=== PATIENT | female | born 1995 | race Caucasian/White ===

== ENCOUNTER 2018-01-09 05:43 | Emergency (ER) | payer OTHER ==
[~2018-01-09 05:43] MED LIST: ETHI1TAB28 PO; ONDA4TAB97 PO; PROM-110 PO
--- NOTE | 2018-01-09 05:46 | ER Report ---
History and Physical Time Seen By MD: 05:45 HPI/ROS CHIEF COMPLAINT: Vomiting and diarrhea HISTORY OF PRESENT ILLNESS: 22-year-old female who began vomiting approximately 3-4 hours prior to arrival. Sudden multiple episodes of vomiting and diarrhea. Patient doesn't think she has food poisoning. She did eat a chicken quesadilla for lunch yesterday and a sandwich for dinner. Denies exposure to ill contacts or recent travel. She denies any other illness. She's not been on antibiotics recently. She denies risk of . REVIEW OF SYSTEMS: Respiratory: No cough, no dyspnea. Cardiovascular: No chest pain, no palpitations. Gastrointestinal: As above Musculoskeletal: No back pain. Allergies: Coded Allergies: No Known Drug Allergies (Unverified , 01/09/18) Home Meds Active Scripts Ondansetron (ZOFRAN ODT) 4 Mg Tab.rapdis, 4 MG PO every 6 hours Y for NAUSEA/ VOMITING, #15 TAB TAKE 1 TABLET BY MOUTH EVERY 12 HOURS Prov:RYNE BLACK DO 01/09/18 Reported Medications Ethinyl Estradiol/Drospirenone (VESTURA 3 MG-0.02 MG TABLET) 1 Each Tablet, 1 EACH PO QDAY 07/28/16 Discontinued Scripts Ondansetron Hcl (ZOFRAN) 4 Mg Tablet, 4 MG PO Q6H Y for NAUSEA/VOMITING, #10 Prov:RYNE BLACK DO 07/28/16 Promethazine Hcl (PROMETHAZINE HCL) 25 Mg Tablet, 25 MG PO Q4H Y for NAUSEA/ VOMITING, #14 TAB Prov:RYNE BLACK DO 07/28/16 Reviewed Nurses Notes: Yes Old Medical Records Reviewed: Yes Hx Substance Use Disorder: Yes (marijuana) Hx Alcohol Use: Yes Constitutional Physical Exam General Appearance: The patient is alert, has no immediate need for airway protection and no current signs of toxicity. Vital signs stable, afebrile, pulse ox normal HEENT: Pupils equal and round no injection. TMs normal, oropharynx with mild erythema, no exudate Respiratory: Chest is non tender, lungs are clear to auscultation. Cardiac: regular rate and rhythm Gastrointestinal: Abdomen is soft and non tender, no masses, bowel sounds hyperactive bowel sounds. Musculoskeletal: Neck: Neck is supple and non tender. Extremities have full range of motion and are non tender. Skin: No rashes or lesions. DIFFERENTIAL DIAGNOSIS: After history and physical exam differential diagnosis was considered for abdominal pain including but not limited to appendicitis, cholecystitis, gastritis, gastritis, food poisoning, viral syndrome, and urinary tract infection. Medical Decision Making Data Points Laboratory Hematology Test 01/09/18 06:05 Red Blood Count 5.92 M/uL (4.17-5.56) Mean Corpuscular Volume 86.8 fL (80.0-96.0) Mean Corpuscular Hemoglobin 29.8 pg (26.0-33.0) Mean Corpuscular Hemoglobin Concent 34.4 g/dL (32.0-36.0) Red Cell Distribution Width 13.6 % (11.5-14.5) Mean Platelet Volume 8.5 fL (7.2-11.1) Neutrophils (%) (Auto) 85.0 % (39.4-72.5) Lymphocytes (%) (Auto) 6.2 % (17.6-49.6) Monocytes (%) (Auto) 8.2 % (4.1-12.4) Eosinophils (%) (Auto) 0.4 % (0.4-6.7) Basophils (%) (Auto) 0.2 % (0.3-1.4) Nucleated RBC Relative Count (auto) 0.0 /100WBC Neutrophils # (Auto) 12.0 K/uL (2.0-7.4) Lymphocytes # (Auto) 0.9 K/uL (1.3-3.6) Monocytes # (Auto) 1.2 K/uL (0.3-1.0) Eosinophils # (Auto) 0.1 K/uL (0.0-0.5) Basophils # (Auto) 0.0 K/uL (0.0-0.1) Nucleated RBC Absolute Count (auto) 0.00 K/uL Sodium Level 137 mmol/L (137-145) Potassium Level 3.8 mmol/L (3.5-5.0) Chloride Level 103 mmol/L (98-107) Carbon Dioxide Level 19 mmol/L (22-31) Blood Urea Nitrogen 18 mg/dl (7-18) Creatinine 0.80 mg/dl (0.52-1.04) Glomerular Filtration Rate Calc > 60.0 Random Glucose 122 mg/dl (75-110) Calcium Level 10.1 mg/dl (8.4-10.2) Total Bilirubin 0.6 mg/dl (0.2-1.3) Aspartate Amino Transf (AST/SGOT) 28 U/L (0-35) Alanine Aminotransferase (ALT/SGPT) 23 U/L (0-56) Alkaline Phosphatase 97 U/L (0-126) Total Protein 8.5 gm/dl (6.3-8.2) Albumin 5.0 g/dl (3.5-5.0) Amylase Level 130 U/L (0-110) Lipase 224 U/L (23-300) Human Chorionic Gonadotropin, Qual Negative (NEGATIVE) Chemistry Test 01/09/18 06:05 White Blood Count 14.1 k/uL (4.5-11.0) Red Blood Count 5.92 M/uL (4.17-5.56) Hemoglobin 17.7 g/dL (12.0-16.0) Hematocrit 51.4 % (34.0-47.0) Mean Corpuscular Volume 86.8 fL (80.0-96.0) Mean Corpuscular Hemoglobin 29.8 pg (26.0-33.0) Mean Corpuscular Hemoglobin Concent 34.4 g/dL (32.0-36.0) Red Cell Distribution Width 13.6 % (11.5-14.5) Platelet Count 321 K/uL (150-450) Mean Platelet Volume 8.5 fL (7.2-11.1) Neutrophils (%) (Auto) 85.0 % (39.4-72.5) Lymphocytes (%) (Auto) 6.2 % (17.6-49.6) Monocytes (%) (Auto) 8.2 % (4.1-12.4) Eosinophils (%) (Auto) 0.4 % (0.4-6.7) Basophils (%) (Auto) 0.2 % (0.3-1.4) Nucleated RBC Relative Count (auto) 0.0 /100WBC Neutrophils # (Auto) 12.0 K/uL (2.0-7.4) Lymphocytes # (Auto) 0.9 K/uL (1.3-3.6) Monocytes # (Auto) 1.2 K/uL (0.3-1.0) Eosinophils # (Auto) 0.1 K/uL (0.0-0.5) Basophils # (Auto) 0.0 K/uL (0.0-0.1) Nucleated RBC Absolute Count (auto) 0.00 K/uL Glomerular Filtration Rate Calc > 60.0 Calcium Level 10.1 mg/dl (8.4-10.2) Total Bilirubin 0.6 mg/dl (0.2-1.3) Aspartate Amino Transf (AST/SGOT) 28 U/L (0-35) Alanine Aminotransferase (ALT/SGPT) 23 U/L (0-56) Alkaline Phosphatase 97 U/L (0-126) Total Protein 8.5 gm/dl (6.3-8.2) Albumin 5.0 g/dl (3.5-5.0) Amylase Level 130 U/L (0-110) Lipase 224 U/L (23-300) Human Chorionic Gonadotropin, Qual Negative (NEGATIVE) ED Course/Re-evaluation Clinical Indication for ER IV: Hydration, IV Access ED Course Patient was admitted to an examination room. H&P was done. The differential diagnoses was considered. On clinical examination. Patient has acute abdominal pain and vomiting. She most likely has food poisoning. She is treated with IV fluid hydration. She feels much better. She does have an elevated white blood cell count. Her abdomen is benign and nonsurgical. Patient tolerated a by mouth challenge. Patient's discharged home on a clear liquid diet with medication for vomiting control. Decision to Disposition Date: Jan 09, 2018 Decision to Disposition Time: 06:01 Depart Departure Latest Vital Signs Impression: Primary Impression: Gastroenteritis Condition: Improved Disposition: HOME OR SELF-CARE Referrals: DEREK ENRIQUEZ MD New Scripts Ondansetron (ZOFRAN ODT) 4 Mg Tab.rapdis 4 MG PO every 6 hours Y for NAUSEA/VOMITING, #15 TAB TAKE 1 TABLET BY MOUTH EVERY 12 HOURS Prov: RYNE BLACK DO 01/09/18 Patient Instructions: Clear Liquid Diet (ED), Gastroenteritis (ED) Additional Instructions: Follow clear liquid diet for 24 hours and advance to the brat diet, bananas, rice, applesauce and toast Avoid fatty food, greasy foods, vegetables, dairy for 48 hours Follow-up with primary care [facility] if unimproved in 3-5 days. RYNE BLACK DO Jan 09, 2018 05:46
[2018-01-09] MEDS ORDERED: NS(*) 0.9% 1000 ML BAG 1,000 ML IV ONE (05:58)
[2018-01-09] MEDS ORDERED: ONDANSETRON 4 MG/2 ML VIAL IVP ONE (06:00)
[2018-01-09] MEDS ORDERED: KETOROLAC 30 MG/ML VIAL IVP ONE (06:00)
[2018-01-09] MEDS ORDERED: ONDA4TAB PO (06:04)
[2018-01-09 06:14] LABS: PLATELET COUNT, AUTOMATED 321 K/uL (150-450)
[2018-01-09] MEDS ORDERED: ONDANSETRON 4 MG ODT TH SL ONE (06:30)
[2018-01-09 06:45] VITALS: BP 111/69
== END 2018-01-09 06:50 | disposition home or self-care (01) ==
LOC: ER 05:46
DX: K52.9 Noninfective gastroenteritis and colitis, unspecified (principal)
CPT/HCPCS: 82150; 83690; 84703; 85025; 96361; 96374; 96375; 99284; J1885; J2405; J7030; 82040; 82247; 82310; 82374; 82435; 82565; 82947; 84075; 84132; 84155; 84295; 84450; 84460; 84520